=== PATIENT | female | born 1995 | race Caucasian/White ===

== ENCOUNTER → 2019-12-13 12:09 | Outpatient (CLI) | payer OTHER, SELFPAY ==
--- NOTE | 2019-12-13 12:18 | DI.US.S_ITS ---
PROCEDURE: US RENAL COMPLETE INDICATIONS: STOMACH PAIN TECHNIQUE: Real-time scanning was performed of the kidneys and bladder, with image documentation. COMPARISON: None. FINDINGS: Kidneys: Kidneys are normal in size. Right kidney measures 9.9 cm long; left kidney measures 10.2 cm long. Right renal cortical thickness is 1 cm; left renal cortical thickness is 1.5 cm. Renal cortical echotexture is normal. No suspicious solid mass lesions. There is moderate right-sided hydronephrosis, which does not resolve postvoid. The right proximal ureter measures up to 1.3 cm. There is [id number] left-sided hydronephrosis, which does not resolve postvoid. Nonobstructing left-sided kidney stones are seen, with the largest measuring up to 1 cm. Bladder: Pre-void bladder volume is 389 mL. Post-void residual is 9 mL. Pre-void images demonstrate no intraluminal masses or stones. On pre-void images, both ureteral jets are noted with color Doppler interrogation. (Of note, ureteral jets may not be detectable in up to 25% of cases due to insufficient differences in specific gravity between ureteral and bladder urine). Miscellaneous: No free pelvic fluid. A right ovarian simple appearing cyst is seen that measures up to 3.7 cm. IMPRESSION: Bilateral hydronephrosis, right worse than left. The hydronephrosis does not resolve postvoid. Nonobstructing left-sided kidney stones are seen. Small postvoid residual, 9 cc. Incidental note is made of a 3.7 cm right ovarian simple appearing cyst. In a patient of this age, this is almost certainly benign. At clinical discretion, a followup pelvic ultrasound is suggested in 6 weeks to assure resolution/ improvement. Dictated by: Kieran Dela Cruz M.D. on 12/13/2019 at 14:18 Approved by: Kieran Dela Cruz M.D. on 12/13/2019 at 14:20
== END ==
PROVIDERS: PCP Family Medicine; Referring Provider Family Medicine; Visit Provider Family Medicine
DX: R10.9 Unspecified abdominal pain (principal); N83.291 Other ovarian cyst, right side; N20.0 Calculus of kidney; N13.30 Unspecified hydronephrosis
CPT/HCPCS: 76770

== ENCOUNTER → 2020-01-26 11:04 | Outpatient (CLI) | payer OTHER, SELFPAY ==
--- NOTE | 2020-01-26 11:20 | DI.CT.S_ITS ---
PROCEDURE: CT ABDOMEN PELVIS WO/W CON INDICATIONS: Unspecified hydronephrosis TECHNIQUE: Optional 5 mm thick noncontrast images acquired from the diaphragm to the symphysis pubis. After the administration of intravenous contrast, 5 mm thick images acquired from the diaphragm to the symphysis pubis after a 10-minute delay. 2 mm thick coronal and sagittal reformats were then performed of the kidneys and ureters. For radiation dose reduction, the following was used: automated exposure control, adjustment of mA and/or kV according to patient size. COMPARISON: Merged With [facility], , RENAL COMPLETE, 12/13/2019, 12:44. FINDINGS: Image quality: Excellent. Lung bases: Lung bases are clear. Heart size is normal. Urinary system: Both kidneys are normal in size, without hydronephrosis. There is a nonobstructing right-sided kidney stone measuring 3 mm. Nonobstructing left-sided kidney stones are seen, which measure up to 2-3 mm. No perinephric fat stranding. There is normal bilateral renal enhancement. Renal calyces appear normal in morphology when filled with contrast. Opacified portions of both ureters demonstrate normal caliber. No definite stones are seen along the courses of the ureters. Pelvic phleboliths are incidentally noted. Bladder wall thickness is normal. No calcified bladder stones. Other solid organs: Liver is normal in size and enhancement. Gallbladder wall is not thickened. Biliary system is non dilated. Pancreas enhances normally. Spleen is normal in size and enhancement. No adrenal nodules. Peritoneum and bowel: Bowel loops demonstrate normal wall thickness and caliber. No free fluid or air. Nodes and vessels: No retroperitoneal or mesenteric adenopathy by size criteria. Aorta and inferior vena cava are normal in size. Abdominal wall: No ventral hernias. Pelvis: No pathologic free pelvic fluid. No inguinal hernias or adenopathy. The uterus appears normal for age. No adnexal masses are seen. Bones: No suspicious bony lesions. No vertebral body compression fractures. IMPRESSION: Nonobstructing bilateral renal stones are seen. No significant hydronephrosis is now seen. Dictated by: Kieran Dela Cruz M.D. on 01/26/2020 at 11:50 Approved by: Kieran Dela Cruz M.D. on 01/26/2020 at 11:53
== END ==
PROVIDERS: PCP Family Medicine; Referring Provider Urology; Visit Provider Urology
DX: N20.0 Calculus of kidney (principal)
CPT/HCPCS: 74178

== ENCOUNTER → 2020-06-05 10:40 | Outpatient (CLI) | payer OTHER, SELFPAY ==
[2020-06-05 19:21] LABS: Add Manual Diff / Slide Review NO; Basophils Absolute Auto 100 /uL (0-100); Basophils Percent Auto 0.4 % (0-2); Eosinophils Absolute Auto 100 /uL (0-450); Eosinophils Percent Auto 0.4 % (2-4); Hematocrit 42.4 % (36-46); Hemoglobin 14.3 g/dL (12.0-16.0); Lymphocytes Absolute Auto 1200 /uL (1100-4500); Lymphocytes Percent Auto 8.5 % (25-40); Mean Corpuscular HGB Conc 33.6 % (30-36); Mean Corpuscular Hemoglobin 29.7 PG (26-34); Mean Corpuscular Volume 88.5 fL (80-100); Monocytes Absolute Auto 1200 /uL (0-900); Monocytes Percent Auto 8.1 % (3-14); Neutrophils Absolute Auto 11900 /uL (1500-7000); Neutrophils Percent Auto 82.6 % (50-75); Platelet Count 225 X10^3/uL (150-400); White Blood Cell Count 14.3 X10^3/uL (4.5-11.0)
[2020-06-05 19:39] LABS: Alanine Aminotransferase 17 IU/L (<35); Albumin 4.5 g/dL (3.5-5.0); Albumin Globulin Ratio 1.6 (1.0-2.8); Alkaline Phosphatase 67 U/L (38-126); Aspartate Aminotransferase 103 IU/L (14-36); BUN Creatinine Ratio 11.9 (6-22); Bilirubin Total 0.7 mg/dL (0.2-1.3); Blood Urea Nitrogen 8 mg/dL (7-17); Calcium 9.2 mg/dL (8.4-10.2); Carbon Dioxide 30 mmol/L (22-32); Chloride 101 mmol/L (98-107); Estimated Glomerular Filt Rate > 60.0 mL/min (>60); Globulin 2.9 g/dL (1.7-4.1); Glucose 95 mg/dL (70-100); Sodium 137 mmol/L (137-145); Total Protein 7.4 g/dL (6.3-8.2)
[2020-06-05 19:52] LABS: HEMOLYSIS 25 (0-50); Potassium 4.3 mmol/L (3.4-5.1)
== END ==
PROVIDERS: PCP Family Medicine; Visit Provider Physician Assistant
DX: N12 Tubulo-interstitial nephritis, not specified as acute or chronic (principal); N20.0 Calculus of kidney
CPT/HCPCS: 80053; 85025; 87077; 87086; 87186

== ENCOUNTER → 2020-07-04 14:52 | Outpatient (CLI) | payer OTHER, SELFPAY | PROVIDERS: PCP Family Medicine; Visit Provider Physician Assistant Medical | DX: L73.9 Follicular disorder, unspecified (principal) | CPT/HCPCS: 87070; 87075; 87077; 87147; 87186; 87205 ==

== ENCOUNTER → 2020-10-05 11:05 | Outpatient (CLI) | payer OTHER, SELFPAY | PROVIDERS: PCP Family Medicine; Referring Provider Physician Assistant; Visit Provider Physician Assistant | DX: R30.0 Dysuria (principal) | CPT/HCPCS: 87077; 87086; 87186 ==